=== PATIENT | female | born 1970 | race Caucasian/White ===

== ENCOUNTER 2018-10-05 07:20 | Outpatient (CLI) | payer BC ==
--- NOTE | 2018-10-05 10:04 | RAD ---
BARIUM SWALLOW ESOPHAGRAM: HISTORY: The patient has abnormal sensation in her upper thoracic esophagus. COMPARISON: None. EXPOSURE: 1.5 minutes. 4.813 Gy per cm2. FINDINGS: Initial thoracic tool engineer chest radiograph demonstrates a normal cardiac silhouette. The lungs and pleu ral spaces are clear. No pneumothorax or osseous abnormalities. The cervical and thoracic esophagus have normal course and caliber. No evidence of an intrinsic proc ess. The visualized mucosa is grossly unremarkable. The patient was administered a standard barium tablet, which does have a slight delay in passage at t he level of the clavicle (proximal thoracic esophagus). With additional water, the 13 mm barium tabl et does pass. No evidence of reflux during intermittent fluoroscopy. IMPRESSION: Delay in passage of a standard barium tablet at the level of the clavicles. POS: MARY KATE
== END 2018-10-05 07:21 | disposition home or self-care (01) ==
LOC: RAD 07:20
PROVIDERS: ATTEND Internal Medicine
DX: R13.10 Dysphagia, unspecified (principal)
CPT/HCPCS: 74220